=== PATIENT | female | born 1980 | race Caucasian/White ===

== ENCOUNTER 2018-05-01 11:24 | Emergency (ER) | payer OTHER ==
[2018-05-01] MEDS ORDERED: NS 0.9% 1000 ML* 1,000 ML IV ONE (11:32)
[2018-05-01] MEDS ORDERED: Ketorolac INJ* 30 MG/ML 1 ML VIAL IV PUSH ONE (11:49)
[2018-05-01] MEDS ORDERED: Ondansetron INJ* 2 MG/ML VIAL IV ONE (11:49)
[2018-05-01 12:01] LABS: Hematocrit 42 % (35-47); Hemoglobin 14.4 g/dl (12.0-16.0); Mean Corpuscular HGB Conc 34 g/dl (31-36); Mean Corpuscular Hemoglobin 31 pg (27-31); Mean Corpuscular Volume 90 fL (80-97); Mean Platelet Volume 7.4 um3 (7.4-10.4); Platelet Count 295 10^3/ul (150-450); Red Blood Count 4.67 10^6/ul (4.00-5.40); Red Cell Distribution Width 13 % (10.5-15); White Blood Count 11.1 10^3/ul (3.5-10.8)
[2018-05-01 12:08] LABS: EGFR Non-African American 111.9 (>60)
--- NOTE | 2018-05-01 12:39 | ED ---
Abdominal Pain/Female - HPI Summary HPI Summary: Patient is a 37 y/o F w/ c/o RLQ abdominal pain and periumbilical pain with radiation to her back and left flank onsetting last night before sleeping. She reports body aches, nausea, decreased appetite, increased frequency of urination and chills. Patient is unsure of fever and denies dizziness, dysuria, and diarrhea. She reports taking two ibuprofen at 0530 today with some relief in pain. In room, pain initially was rated 8.5/10, after ibuprofen 6-7/10. Pain is constant with occasional sharp stabbing. PSHx of tubal ligation, carpal tunnel surgery, and cholecystectomy is noted. Home medications and allergies are reviewed. LNMP was last week, no FMHx of Crohn's disease. PMHx of ovarian cysts is denied. - History of Current Complaint Chief Complaint: EDAbdPain Stated Complaint: RT SIDE PAIN Time Seen by Provider: 05/01/18 11:32 Hx Obtained From: Patient Onset/Duration: Lasting Days - onset last night, Still Present Timing: Constant Severity Currently: Severe - 9/10 Pain Intensity: 9 Pain Scale Used: 0-10 Numeric - 9/10 Location: Discrete At: RLQ, Umbilical Radiates: Yes Radiates to: Back, Flank - left Character: Sharp - occasionally experiences sharp stabbing Aggravating Factor(s): Nothing Alleviating Factor(s): Nothing Associated Signs and Symptoms: Positive: Back Pain, Decreased Appetite, Nausea, Other: - POSITIVE: increased frequency of urination, chills, body aches, flank pain NEGATIVE: dizziness, dysuria. Negative: Diarrhea Allergies/Adverse Reactions: Allergies Allergy/AdvReac Type Severity Reaction Status Date / Time No Known Allergies Allergy Verified 05/01/18 11:29 Home Medications: Home Medications Ergocalciferol (Vitamin D2) [Vitamin D2] 50,000 unit PO WEEKLY 05/01/18 [ History Confirmed 05/01/18] Multivitamin [Multiple Vitamins] 1 tab PO DAILY 05/01/18 [History Confirmed ] Vitamin B Complex TAB* [B Complex-50*] 1 tab PO DAILY 05/01/18 [History Confirmed 05/01/18] PMH/Surg Hx/FS Hx/Imm Hx Sensory History: Denies: Hx Legally Blind, Hx Deafness Opthamlomology History: Denies: Hx Legally Blind EENT History: Denies: Hx Deafness Infectious Disease History: No Infectious Disease History: Denies: Traveled Outside the [place] in Last 30 Days - Family History Known Family History: Negative: Blood Disorder - Social History Alcohol Use: None Substance Use Type: Reports: None Smoking Status (MU): Never Smoked Tobacco Review of Systems Positive: Chills, Other - body aches Positive: Abdominal Pain - RLQ and periumbilical with radiation to left flank and back , Nausea, Other - decreased appetite . Negative: Diarrhea Positive: frequency - POSITIVE: increased urination frequency. Negative: dysuria Neurological: Other - NEGATIVE: dizziness All Other Systems Reviewed And Are Negative: Yes Physical Exam - Summary Physical Exam Summary: Appearance: Well appearing, no pain distress Skin: warm, dry, reflects adequate perfusion Head/face: normal Eyes: EOMI, OREN ENT: mucous membranes moist Neck: supple, non-tender Respiratory: CTA, breath sounds present Cardiovascular: RRR, pulses symmetrical Abdomen: non-tender, soft Bowel Sounds: present Musculoskeletal: normal, strength/ROM intact, no CVA tenderness Neuro: normal, sensory motor intact, A&Ox3 Triage Information Reviewed: Yes Vital Signs On Initial Exam: Initial Vitals Temp Pulse Resp BP Pulse Ox 98 F 86 16 125/81 98 05/01/18 11:25 05/01/18 11:25 05/01/18 11:25 05/01/18 11:25 05/01/18 11:25 Vital Signs Reviewed: Yes Diagnostics - Vital Signs Vital Signs Temp Pulse Resp BP Pulse Ox 05/01/18 11:36 123/79 05/01/18 11:25 98 F 86 16 125/81 98 - Laboratory Lab Results: Lab Results 05/01/18 05/01/18 05/01/18 Range/Units 11:39 11:39 11:39 WBC 11.1 H (3.5-10.8) 10^3/ul RBC 4.67 (4.00-5.40) 10^6/ul Hgb 14.4 (12.0-16.0) g/dl Hct 42 (35-47) % MCV 90 (80-97) fL MCH 31 (27-31) pg MCHC 34 (31-36) g/dl RDW 13 (10.5-15) % Plt Count 295 (150-450) 10^3/ul MPV 7.4 (7.4-10.4) um3 Neut % (Auto) Pending Lymph % (Auto) Pending Navarro % (Auto) Pending Eos % (Auto) Pending Baso % (Auto) Pending Absolute Neuts (auto) Pending Absolute Lymphs (auto) Pending Absolute Monos (auto) Pending Absolute Eos (auto) Pending Absolute Basos (auto) Pending Absolute Nucleated RBC Pending Nucleated RBC % Pending Sodium 137 (135-145) mmol/L Potassium 4.0 (3.5-5.0) mmol/L Chloride 106 (101-111) mmol/L Carbon Dioxide 24 (22-32) mmol/L Anion Gap 7 (2-11) mmol/L BUN 6 (6-24) mg/dL Creatinine 0.60 (0.51-0.95) mg/dL Est GFR ( Amer) 135.4 (>60) Est GFR (Non-Af Amer) 111.9 (>60) BUN/Creatinine Ratio 10.0 (8-20) Glucose 94 (70-100) mg/dL Lactic Acid 0.6 (0.5-2.0) mmol/L Calcium 9.0 (8.6-10.3) mg/dL Total Bilirubin 0.70 (0.2-1.0) mg/dL AST 16 (13-39) U/L ALT 13 (7-52) U/L Alkaline Phosphatase 87 (34-104) U/L C-Reactive Protein 36.05 H (<8.01) mg/L Total Protein 6.7 (6.4-8.9) g/dL Albumin 4.3 (3.2-5.2) g/dL Globulin 2.4 (2-4) g/dL Albumin/Globulin Ratio 1.8 (1-3) Lipase 22 (11.0-82.0) U/L Beta HCG, Quant Pending Result Diagrams: 05/01/18 11:39 05/01/18 11:39 Lab Statement: Any lab studies that have been ordered have been reviewed, and results considered in the medical decision making process. - CT CT abd/pel CT Interpretation: Positive (See Comments) CT Interpretation Completed By: Radiologist - 1. Consistent with the same day pelvic ultrasound, there is a right of midline fundal height myometrial uterine fibroid measuring approximately ~6 cm in greatest axial dimension. 2. No CT evidence of acute inflammatory change of the gastrointestinal tract including a normal-appearing appendix. 3. Homogenous hypoattenuation of the liver could be due to hepatic steatosis. 4. Splenomegaly. The spleen measuring 15.4 cm in greatest axial dimension. This report was reviewed by ed physician. - Ultrasound No standard instances Ultrasound Interpretation: Positive (See Comments) Ultrasound Interpretation Completed By: Radiologist - PELVIC/TRANSVAG US IMPRESSIONS: #. 5.8 cm grossly midline fundal fibroid results in impression on the endometrium. Normal endometrial thickness. #. Unremarkable bilateral ovaries. This report was reviewed by ed physician Re-Evaluation - Re-Evaluation First Eval Re-Evaluation Time: 14:20 Change: Improved Comment: Patient states pain has been improved. Discussed results of labs and tests with patient. She will be discharged to home, additional treatment instructions and follow up plan were discussed. Patient understands and is agreeable with plan. Abdominal Pain Fem Course/Dx - Course Course Of Treatment: Patient with vague right-sided abdominal pain. History of gallbladder removal. No fever. Urine is clean. CT of the abdomen and pelvis and ultrasound failed to reveal any significant causative etiology. There is a large fibroid that may be related. She does have history of heavy bleeding. The radiologist also performs interventional procedures and came to discuss possible uterine artery embolization in the future if this is an issue. We treated her with NSAID and fluids with improvement. She discharged in good condition. - Diagnoses Differential Diagnosis: Positive: Appendicitis, Constipation, Ovarian Cyst, Pancreatitis, Peptic Ulcer Disease, Renal Colic, Urinary Tract Infection Provider Diagnoses: Right sided abdominal pain, Uterine fibroid Discharge - Sign-Out/Discharge Documenting (check all that apply): Patient Departure - discharge - Discharge Plan Condition: Improved Disposition: HOME Prescriptions: Naproxen [Naproxen 500 mg tab] 500 mg PO BID PRN #12 tablet.dr MARCANO Reason: Pain Patient Education Materials: Acute Abdominal Pain (ED), Uterine Artery Embolization for Fibroids (DC) Referrals: Aram Pathak MD [Primary Care Provider] - Endy Washburn MD [Medical Doctor] - Additional Instructions: Follow-up with your [facility] [employer]. Drink plenty of fluids. Return with fever, new symptoms, worse or other concerns as discussed. - Billing Disposition and Condition Condition: IMPROVED Disposition: Home - Attestation Statements Document Initiated by Popeyeibe: Yes Documenting Scribe: Silvio Sotelo Provider For Whom Gino is Documenting (Include Credential): Joseluis Pleitez MD Scribe Attestation: ISilvio, scribed for Joseluis Pleitez MD on 05/01/18 at 1556. Scribe Documentation Reviewed: Yes Provider Attestation: The documentation as recorded by the Silvio cameron accurately reflects the service I personally performed and the decisions made by me, Joseluis Pleitez MD
[2018-05-01 12:50] LABS: Urine Appearance Clear; Urine Blood 1+ (Negative); Urine Color Yellow; Urine Ketones Trace (Negative); Urine Protein Negative (Negative); Urine Red Blood Cell 1+(3-5/hpf) (Absent); Urine Specific Gravity 1.005 (1.010-1.030); Urine Urobilinogen Negative (Negative); Urine White Blood Cell Absent (Absent)
--- NOTE | 2018-05-01 13:06 | RAD ---
Indication: RIGHT lower quadrant pain Comparison: No relevant prior exams available on the [facility] PACS for comparison. Technique: Transabdominal pelvic ultrasound. Report: 11.0 x 7.4 x 9.5 cm anteverted uterus is remarkable for a 5.7 x 4.8 x 5.8 cm grossly midline fundal fibroid with resulting impression on the endometrium. 6.2 mm endometrium. Negative for free pelvic fluid. 3.0 x 2.0 x 3.9 cm RIGHT ovary with documented vascular flow is unremarkable. 3.8 x 1.5 x 3.4 cm LEFT ovary with documented vascular flow is unremarkable. Small follicles visible at both ovaries. Negative for visualized extra ovarian adnexal region lesions. IMPRESSION: #. 5.8 cm grossly midline fundal fibroid results in impression on the endometrium. Normal endometrial thickness. #. Unremarkable bilateral ovaries.
[2018-05-01] MEDS ORDERED: Iohexol 300* (CONTRAST) 10 ML SDV IV ONE (13:27)
--- NOTE | 2018-05-01 13:52 | RAD ---
CLINICAL HISTORY: Right lower quadrant pain. COMPARISON: Same day pelvic ultrasound demonstrating a large right of midline fundal height uterine fibroid measuring 5.8 cm in greatest dimension. TECHNIQUE: Contrast enhanced CT examination of the abdomen and pelvis from the lung bases through the initial tuberosities. The patient received 133 mL Omnipaque 300 intravenously prior to imaging. FINDINGS: VISUALIZED LUNG BASES: The visualized lung bases are grossly clear. There is no pleural effusion. ABDOMEN AND PELVIS: The liver is homogenously hypodense relative to the spleen. There are no focal suspicious lesions or surface irregularity. The homogenously attenuating spleen measures 15.3 cm in greatest axial dimension. The pancreas and adrenal glands are grossly normal in appearance. The gallbladder is surgically absent. The kidneys are normal in appearance without focal mass, calcification or signs of hydronephrosis. Evaluation of the gastrointestinal tract is limited in the absence of oral contrast. The small and large bowel are not distended. The normal appearing appendix is identified in the right lower quadrant measuring 5 mm in diameter (axial image 60). There is no gross retroperitoneal or mesenteric lymphadenopathy. Corresponding to same day pelvic ultrasound images, there is a right of midline anterior fundal well-circumscribed mass measuring 6.1 x 6.2 cm in the axial plane and 5 cm in the cephalocaudal dimension, most consistent with a uterine fibroid. The abdominal aorta and iliac arteries are normal in course and diameter. Degenerative changes include multilevel loss of intervertebral disc height involving the lower thoracic and lumbar spine. Degenerative changes are most severe at L5/S1 where there is a mild degree of endplate sclerosis and marginal osteophyte formation. IMPRESSION: 1. Consistent with the same day pelvic ultrasound, there is a right of midline fundal height myometrial uterine fibroid measuring approximately ~6 cm in greatest axial dimension. 2. No CT evidence of acute inflammatory change of the gastrointestinal tract including a normal-appearing appendix. 3. Homogenous hypoattenuation of the liver could be due to hepatic steatosis. 4. Splenomegaly. The spleen measuring 15.4 cm in greatest axial dimension.
[2018-05-01 14:15] LABS: ABS Basophils 0.1 10^3/ul (0-0.2); ABS Eosinophils 0.1 10^3/ul (0-0.6); ABS Monocytes 0.6 10^3/ul (0-0.8); ABS Neutrophils 8.3 10^3/ul (1.5-7.7); ABS Nucleated RBC 0 10^3/ul; Eosinophil % 0.5 % (0-6); Lymphocyte % 18.1 % (25-47); Nucleated Red Blood Cells % 0
[2018-05-01 14:32] VITALS: BP 122/72
== END 2018-05-01 14:31 | disposition home or self-care (01) ==
LOC: ED 11:24
DX: D25.9 Leiomyoma of uterus, unspecified (principal); R10.31 Right lower quadrant pain; M54.9 Dorsalgia, unspecified; R11.0 Nausea
CPT/HCPCS: 36415; 74177; 76857; 80053; 81003; 81015; 83605; 83690; 84702; 85025; 86140; 96374; 96375; 99282; J1885; J2405; Q9967

== ENCOUNTER 2018-09-28 09:34 | Observation (INO) | payer BC, OTHER ==
[2018-09-28] MEDS ORDERED: Clindamycin 900 MG/D5W BAG(*) 900 MG/50 ML BAG IVPB ONE (10:00)
[2018-09-28 11:01] LABS: ABS Basophils 0.1 10^3/ul (0-0.2); ABS Eosinophils 0.2 10^3/ul (0-0.6); ABS Lymphocytes 1.8 10^3/ul (1.0-4.8); ABS Monocytes 0.3 10^3/ul (0-0.8); ABS Nucleated RBC 0 10^3/ul; Eosinophil % 2.4 %; Hematocrit 42 % (35-47); Hemoglobin 14.3 g/dl (12.0-16.0); Lymphocyte % 27.9 %; Mean Corpuscular HGB Conc 34 g/dl (31-36); Mean Corpuscular Hemoglobin 31 pg (27-31); Mean Corpuscular Volume 91 fL (80-97); Mean Platelet Volume 7.7 fL (7.4-10.4); Nucleated Red Blood Cells % 0.2; Platelet Count 291 10^3/ul (150-450); Red Blood Count 4.59 10^6/ul (4.00-5.40); Red Cell Distribution Width 13 % (10.5-15); White Blood Count 6.3 10^3/ul (3.5-10.8)
[2018-09-28 11:09] LABS: Activated Partial Thrombo Time 31.2 seconds (26.0-36.3); INR 0.84 (0.77-1.02)
[2018-09-28] MEDS ORDERED: Ondansetron INJ* 2 MG/ML VIAL ONE ×3 (11:44→15:42)
[2018-09-28] MEDS ORDERED: Scopolamine 1.5 mg* PATCH ONE (11:44)
[2018-09-28] MEDS ORDERED: oxyCODONE SR TAB(*) 10 MG TAB.SR ONE (11:45)
[2018-09-28] MEDS ORDERED: Naproxen TAB* 250 MG ONE (11:45)
[2018-09-28] MEDS ORDERED: LORazepam TAB(*) 1 MG ONE (11:45)
[2018-09-28] MEDS ORDERED: Ketorolac INJ* 30 MG/ML 1 ML VIAL ONE ×2 (12:38→14:24)
[2018-09-28] MEDS ORDERED: fentaNYL* 50 MCG/ML 5 ML VIAL (250 MCG VIAL) ONE ×2 (12:38→14:57)
[2018-09-28] MEDS ORDERED: Flumazenil* 0.1 MG/ML 5 ML MDV ONE (12:38)
[2018-09-28] MEDS ORDERED: Midazolam* 1 MG/ML 10 ML VIAL (10 MG) ONE (12:38)
[2018-09-28] MEDS ORDERED: Naloxone* 0.4 MG/ML 1 ML VIAL ONE (12:38)
[2018-09-28] MEDS ORDERED: Lidocaine 1% INJ* 10 MG/ML 30 ML SDV ONE (12:38)
[2018-09-28] MEDS ORDERED: nitroGLYCERIN DRIP* 25,000 MCG/250 ML BTL ONE (12:39)
[2018-09-28] MEDS ORDERED: Iohexol 350 (CONTRAST) 200 ML MDV IV ONE ×2 (12:39→14:09)
[2018-09-28] MEDS ORDERED: VERAPAMIL 2.5 MG/ML 2 ML VIAL ** 5 mg/2 ml ONE (13:16)
[2018-09-28] MEDS ORDERED: Heparin(*) 1000 UNIT/ML 10 ML VIAL CATH LAB IV ONE (13:16)
[2018-09-28] MEDS ORDERED: HYDROmorphone INJ1* 1 MG/ML SYRINGE ONE ×2 (15:25→16:22)
[2018-09-28] MEDS ORDERED: HYDROmorphone PCA* 20 MG/20 ML PCA.SYRING ONE (15:49)
[2018-09-28] MEDS ORDERED: PROCHLORPERAZINE INJ 5 MG/ML 2 ML VIAL ONE (16:22)
--- NOTE | 2018-09-28 19:04 | PN ---
Progress Note - Progress Note Date of Service: 09/28/18 SOAP: Subjective: Pain rated at 4/10. Prior emesis, but no nausea now. Objective: Selected Entries 09/28/18 18:01 Heart Rate 47 Respiratory 12 Rate Blood Pressure 109/66 (mmHg) Blood Pressure 87 Mean O2 Sat by Pulse 94 Oximetry Sleepy, but arousable to voice NAD, AAO x 3 when aroused Abdomen is soft, minimally tender over pelvis 1+ pulse at left radial artery Arteriotomy site is soft, nontender Sensation intact to light touch over left hand Muscular function is grossly intact Assessment: 38 YOF status post left radial arteriotomy Uterine Fibroid Arterial Embolization with pain and nausea currently controlled. Patient is episodically bradycardic, but normotensive and arousable to voice ( HR is low 50s at the time of this note). Plan: 1. Standard post UFE regimen. 2. Add Compazine 5 mg IV Q 8 hours PRN for breakthrough nausea/emesis. 3. Add Ativen 0.5 mg IV Q 8 hours PRN for anxiety/pain.
[2018-09-28] MEDS ORDERED: LORazepam INJ* 2 MG/ML 1 ML VIAL IV PUSH PRN (19:05)
[2018-09-28] MEDS ORDERED: PROCHLORPERAZINE INJ 5 MG/ML 2 ML VIAL IV PRN (19:05)
[2018-09-28] MEDS ORDERED: HYDROmorphone PCA* 20 MG/20 ML PCA.SYRING PCA SCH (20:00)
[2018-09-28] MEDS: Ondansetron INJ* 2 MG/ML VIAL IV SCH (21:30)
[2018-09-28] MEDS: Ketorolac INJ* 15 MG/ML 1 ML VIAL IV PUSH SCH (21:30)
[2018-09-29] MEDS: Ondansetron INJ* 2 MG/ML VIAL IV SCH (03:07)
[2018-09-29] MEDS: Ketorolac INJ* 15 MG/ML 1 ML VIAL IV PUSH SCH (03:07)
--- NOTE | 2018-09-29 03:29 | HP ---
CC: Dr. Aram Pathak; Dr. Endy Washburn; Dr. Genao * HISTORY AND PHYSICAL: DATE OF ADMISSION: 09/28/18 PRIMARY CARE PROVIDER: Dr. Aram Pathak. INTERVENTIONAL RADIOLOGIST: Dr. Endy Washburn. OUTPATIENT SLOT MACHINE MECHANIC: Dr. Genao. ATTENDING PHYSICIAN: Dr. Silvino Lewis * (dictated by Katy Simmons NP). REASON FOR VISIT: Uterine fibroid embolization. HISTORY OF PRESENT ILLNESS: Ms. Odonnell is a 38-year-old female with no significant past medical history, who presented to [facility] today for an elective uterine fibroid embolization with Dr. Washburn. She is a G2, P2 middle-aged woman who has had increased frequency of periods over the last year. During that time, she experiences significant cramping and pelvic pain up to an 8/10. This has not resolved with [id number] analgesics. She did present to the emergency room in April 2018 because the pain was so severe. She was ultimately referred to Dr. Washburn for consideration for a uterine fibroid embolization. On my exam, the patient is in the PACU and is quite drowsy, though is able to wake enough to have short conversation. She rates her pain a 9/10 at this point and she is currently on a ALUMINUM MOLDER. She denies any nausea. She has had no recent illnesses. No past medical diagnoses. No recent fevers, cough, chills. She was referred to the hospitalist service by Dr. Washburn for admission post E. PAST MEDICAL HISTORY: 1. Uterine fibroids status post embolization. PAST SURGICAL HISTORY: 1. Tubal ligation. 2. Cholecystectomy. 3. Right carpal tunnel release. HOME MEDICATIONS: 1. Multivitamin 1 tab p.o. daily. 2. Vitamin B complex 1 tab p.o. daily. ALLERGIES: No known drug allergies. FAMILY HISTORY: The patient reports that her father has diabetes and hypertension, though is alive and well. She reports her mother is alive and well. She reports a significant history for diabetes and hypertension. SOCIAL HISTORY: The patient denies any tobacco, alcohol, or recreational drug use. 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 She lives at home with her and 2 children. The patient's would be her surrogate decision maker in the event she is unable to make her own decisions. REVIEW OF SYSTEMS: An 11-point review of systems was performed and all the pertinent positive and negative findings are in the HPI. All other systems are negative. PHYSICAL EXAMINATION GENERAL: Ms. Odonnell is a well-developed, well-nourished, overweight white woman, lying in bed, in no acute distress. She appears her stated age. VITAL SIGNS: Temp 96.8, heart rate 43, respiratory rate 16, oxygen saturation 98% on 2 L nasal cannula, blood pressure 149/94. HEENT: Head is atraumatic, normocephalic. Visual loza are grossly intact. Mucous membranes are moist and without lesions. NECK: Full range of motion. Trachea at midline. RESPIRATORY: Symmetrical chest expansion. No chest wall deformities. Lungs clear to auscultation throughout. CARDIOVASCULAR: Regular rate, though bradycardic. S1, S2 present. No murmurs , rubs, or gallops. ABDOMEN: Soft, tender to palpation throughout. Bowel sounds normoactive. EXTREMITIES: Skin warm and smooth bilaterally. No edema. No clubbing or cyanosis. Pedal pulses 2+ bilaterally. NEURO: Drowsy, but oriented x4. Moves all extremities. SKIN: Left radial access site is clean, dry, intact. DIAGNOSTIC STUDIES/LAB DATA: WBC 6.3, RBC 4.59, hemoglobin 14.3, hematocrit 42 , platelets 291. INR 0.84. Beta-hCG negative. ASSESSMENT AND PLAN: Ms. Odonnell is a 38-year-old female with no significant past medical history, who presented today for a uterine fibroid embolization and is currently recovering well in the postoperative area. The patient will be admitted under observation for: 1. Status post uterine fibroid embolization. The patient is currently on a ALUMINUM MOLDER for pain control. She will be transitioned to an oral pain regimen as tolerated per UFE protocol by Dr. Washburn. She will have antiemetics available. She will be monitored closely for postsurgical complications and her left radial access site will be monitored frequently. 2. Bradycardia. The patient is bradycardic in the 40s and 50s in the PACU. She is currently asymptomatic. I suspect this is simply related to anesthesia and it will resolve overnight or tomorrow. We will monitor her on telemetry overnight to ensure resolution. 3. Fluids, electrolytes, and nutrition: The patient does not require any fluid resuscitation at this time, though I will defer to Dr. Washburn for the typical postoperative fluids. I have placed her on a clear liquid diet at this point with plans to advance to regular diet tomorrow if she tolerates. 4. Code status: The patient will be a full code. 5. DVT prophylaxis: According to the DVT Risk Assessment, the patient scores a 1 making her low risk. I have ordered SCDs. TIME SPENT: Approximately 40 minutes was spent on this admission, greater than half of that time spent [id number] with the patient obtaining my history, performing my physical exam, and reviewing the plan of care. This case has been reviewed with my attending, Dr. Lewis, who is in agreement with the plan of care. KATY SIMMONS, [employer] [id number]/CPS #: [id number] EDILSON
--- NOTE | 2018-09-29 08:39 | PN ---
Progress Note - Progress Note Date of Service: 09/29/18 SOAP: Date of Service: 09/29/18 Subjective: +Nausea and emesis overnight, but controlled now. Rates pain 4/10 at low midline pelvis, "feels like a menstrual cramp". +void without issue Drank clears overnight, no solid food yet Objective: Selected Entries 09/29/18 07:55 Temperature 98.8 F Temperature Oral Source Pulse Rate 71 Respiratory 16 Rate Blood Pressure 120/77 (mmHg) Blood Pressure 87 Mean O2 Sat by Pulse 99 Oximetry Patient on Room Yes Air Arousable to voice NAD, AAO x 3 RRR, S1/S2 CTAB Minimal tenderness elicited when compressing suprapubic area, no guarding or rebound tenderness Left hand is warm to touch Sensation intact Motor function of left hand is grossly normal 2+ left radial pulse Dressing over left radial arteriotomy is clean & dry Assessment: 38 YOF POD #1 Uterine Fibroid Arterial Embolization with episodic nausea/emesis overnight that seems to be controlled now. Plan: 1. Transition IV to PO meds. 2. Encourage diet slowly with bland breakfast tray. 3. Ambulation with assistance. 4. Discharge medications will include: * Percocet 5/325 tablets. Take 1 or 2 Q 6 hours prn breakthrough pain x 7 days. * Toradol 10 mg PO every 6 hours x 3 days (One refill) * Compazine 10 mg PO every 6 hours x 3 days (One refill) * Compazine 5 mg PO every 6 horus x 3 days (to follow larger dose 3 day regimen) * Scopoloamine patch 1.5 mg TD. On 10/01/18 at 9AM, remove current patch and replace with new one then wear x 3 days. * Patient is strongly advised to one cup of laxative tea daily (e.g. Smooth Move ) for one week
[2018-09-29] MEDS ORDERED: HYDROcodone/ACETAMIN 5-325 MG* 1 TAB PO PRN (08:41)
[2018-09-29] MEDS ORDERED: Ketorolac TAB * 10 MG TAB PO SCH (09:00)
[2018-09-29] MEDS: Prochlorperazine TAB* 10 MG PO SCH ×2 (09:43→11:22)
[2018-09-29 11:39] VITALS: BP 143/102
--- NOTE | 2018-09-29 20:34 | DS ---
CC: Dr. Aram Pathak; Dr. Genao; Dr. Endy Washburn * DISCHARGE SUMMARY: DATE OF ADMISSION: 09/28/18 DATE OF DISCHARGE: 09/29/18 PRIMARY CARE PROVIDER: Dr. Aram Pathak. OUTPATIENT SPRING COILING MACHINE SETTER: Dr. Genao. INTERVENTIONAL RADIOLOGIST: Dr. Endy Washburn. ATTENDING PHYSICIAN: Dr. Oscar Curiel * (dictated by Katy Simmons NP). PRIMARY DIAGNOSIS: Uterine fibroids, status post embolization. SECONDARY DIAGNOSES: None. STUDIES WHILE IN THE HOSPITAL: EKG on 09/28/18, shows sinus bradycardia with a rate of 47, QTc 404, no ischemic changes. HISTORY OF PRESENT ILLNESS AND HOSPITAL COURSE: Ms. Odonnell is a 38-year-old female with no significant past medical history, who presented to [facility] on , for an elective uterine fibroid embolization with Dr. Washburn. Please see the history and physical by myself, for complete summary of the events leading up to this hospitalization. In short, the patient had been struggling with the symptoms related to her fibroids for the last year and ultimately decided to proceed with an embolization with Dr. Washburn. I saw the patient in the PACU yesterday after the procedure. During which time, she was quite drowsy. She was also noted to be bradycardic, which was secondary to anesthesia. She was admitted by the hospitalist service. Ms. Odonnell was placed on standard UFE orders including antiemetics and analgesics. She was started on clear liquids, which she tolerated well and was transitioned to a regular diet this morning by Dr. Washburn. She had an uneventful night. She was monitored on telemetry overnight and her heart rate was noted to be down into the 40s while sleeping, though this morning heart rate is between 50 and 70. She is asymptomatic. Denies any dizziness, lightheadedness. She is not having any difficulty ambulating. She reports feeling well this morning. She reports 7/10, lower abdominal cramping. On my exam this morning, she had taken [place] approximately 15 minutes before, and felt as though that was sufficient to manage her pain. She has a left radial access site, which is clean, dry, and intact. Sensation and active range of motion are intact to the left wrist, hand, and fingers. I spoke with Dr. Washburn , who felt as though the patient was stable for discharge, assuming she tolerated her regular diet. The patient did tolerate a regular diet around 11 and was anxious to return home. Ms. Odonnell is stable for discharge today. Vital signs are as follows: Temp 98.7, heart rate 68, respiratory rate 16, oxygen saturation 98% on room air, blood pressure 120/77. DISCHARGE MEDICATIONS: New medications: 1. Ketorolac 10 mg p.o. q.6 hours x3 days, 1 refill. 2. Oxycodone/acetaminophen 5/325 mg 1 to 2 tabs p.o. q.6 hours p.r.n. pain x7 days. 3. Compazine 10 mg p.o. q.6 hours x3 days. 4. Compazine 5 mg p.o. q.6 hours x3 days (to be taken after the 3-day course of the higher dose). 5. Scopolamine patch 1.5 mg 1 patch transdermal q.72 hours (change current patch on Tuesday10/01/18). Continued medications: 1. Multivitamin 1 tab p.o. daily. 2. Vitamin B complex 1 tab p.o. daily. Discontinued medications: Naproxen. DISCHARGE PLAN: Ms. Odonnell will be discharged home. Activity will be as tolerated. Recommendations per Dr. Washburn: She can resume showering, but should avoid tubs and swimming for 1 week, avoid any strenuous exercise for 1 week and slowly increase activity after the first week. Avoid vaginal intercourse and tampon usage for [address] until you are no longer taking narcotic pain medication. Diet will be regular as tolerated. Per Dr. Washburn's instructions, the patient has been encouraged to purchase a laxative tea to drink 1 cup daily for 1 week to prevent any opioid induced constipation. She has also been instructed to increase her fluid and fiber intake. Dr. Washburn has also given the patient instructions on expected vaginal discharge and what to do if she has unexpected vaginal discharge. She has also been advised on how to care for her left wrist access site, which she can clean with soap and water and she should wear a Band-Aid for 3 days over the site. Medications are noted above. I have prescribed post UFE medications per Wu's recommendation. The patient has been prescribed Toradol and Percocet for pain. I have advised the patient that she should not take any other NSAIDs while taking the ketorolac, so should no longer take the naproxen that she was taking prior to admission. She has been prescribed Compazine 10-mg every 6 hours for 3 days followed by 5 mg every 6 hours for 3 days. Additionally, she has been prescribed 1 scopolamine patch. She should change her current patch on 10/01/18. She has been instructed on followup by Dr. Washburn, though should follow up with him in approximately 6 weeks. She should additionally follow up with her outpatient SPRING COILING MACHINE SETTER and her primary care provider. Per Dr. Washburn's instructions, she should seek care immediately for any foul smelling vaginal discharge especially if accompanied by fever, chills, and pelvic pain or if she notices any swelling or active bleeding from her puncture site in her left wrist. She has also been instructed to return to the emergency room or nearest hospital for any worsening of symptoms, shortness of breath, lightheadedness, dizziness, chest discomfort, high fevers, chills, night sweats, loss of consciousness, or any other worrisome signs or symptoms. This is a summarized report of a complex medical history and hospital stay. For further details, please see the entire medical record. TIME SPENT: Approximately 40 minutes was spent on this discharge. KATY SIMMONS, COMPTOMETRIST [id number]/[facility] #: [id number] EDILSON
== END 2018-09-29 13:20 | disposition home or self-care (01) ==
LOC: CHICATH 09:34 → SSU 18:54
PROVIDERS: ADMIT Internal Medicine; ATTEND Student in an Organized Health Care Education/Training Program
DX: D25.9 Leiomyoma of uterus, unspecified (principal); Z98.51 Tubal ligation status; R00.1 Bradycardia, unspecified; R10.2 Pelvic and perineal pain
CPT/HCPCS: 36415; 37243; 76937; 84702; 85025; 85610; 85730; 93005; 96374; 96375; 96376; 99156; 99157; A9270-GY; C1884; C1887; G0378; J0780; J1170; J1644; J1885; J2250; J2310; J2405; J3010; Q0164